=== PATIENT | female | born 2000 ===

== ENCOUNTER 2021-10-08 23:31 | Emergency (ER) | payer MEDICAID ==
[~2021-10-08] VITALS: Ht 157.5 cm; Wt 81.8 kg
[2021-10-08 23:39] VITALS: BP 130/86
[2021-10-09] MEDS ORDERED: ALBUTEROL SULFATE HFA 90 MCG/PUFF 8 GM INHALER IH ONE
== END 2021-10-09 00:20 | disposition left against medical advice (07) ==
LOC: EMS 23:35
DX: U07.1 COVID-19 (principal); J45.909 Unspecified asthma, uncomplicated; Z53.21 Procedure and treatment not carried out due to patient leaving prior to being seen by health care provider
CPT/HCPCS: 94664; J3535; U0003